=== PATIENT | female | born 1960 | race Caucasian/White ===

== ENCOUNTER 2017-01-16 09:18 | Emergency (ER) | payer OTHER ==
[2017-01-16 09:24] VITALS: BP 140/86
--- NOTE | 2017-01-16 10:52 | PROVIDER DOCUMENTATION ---
HPI-Rash/Wound/ReCheck - General Chief Complaint: Work Related Injury Stated Complaint: WORK RELATED INJURY Time Seen by Provider: 01/16/17 10:42 Source: patient Allergies/Adverse Reactions: Allergies Allergy/AdvReac Type Severity Reaction Status Date / Time acetaminophen [From Lortab] Allergy RASH Verified 01/16/17 09:24 hydrocodone bitartrate * Allergy RASH Verified 01/16/17 09:24 [From Lortab] Penicillins Allergy ANAPHYLAXIS Verified 01/16/17 09:24 Sulfa (Sulfonamide Allergy ANAPHYLAXIS Verified 01/16/17 09:24 Antibiotics) Home Medications: Home Medication List Medication Instructions Recorded Confirmed Last Taken Type Atorvastatin Calcium [Lipitor] 20 mg PO HS 08/26/15 08/26/15 08/25/15 History Cetirizine HCl [Zyrtec] 10 mg PO HS 08/26/15 08/26/15 08/25/15 History Cholecalciferol (Vitamin D3) 1,000 unit PO HS 08/26/15 08/26/15 08/25/15 History [Vitamin D] Lisinopril/Hydrochlorothiazide 1 each PO DAILY 08/26/15 08/26/15 08/26/15 History [Zestoretic 20-12.5 mg Tablet] Meloxicam [Mobic] 15 mg PO DAILY 08/26/15 08/26/15 08/26/15 History Metoprolol Succinate E.r. [Toprol 50 mg PO DAILY 08/26/15 08/26/15 08/26/15 History Xl] Tramadol [Ultram] 50 mg PO Q6H PRN PRN #20 tablet 07/27/16 Unknown Rx Silver Sulfadiazine [Silvadene] 85 gm TP BID #1 cream..g. 01/16/17 Unknown Rx - History of Present Illness-Dermatology Nature of Presenting Problem: 56 yo female presents to ER with c/o burn to medial side of left wrist. She has silvadene on wound. 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 Location: reports: upper extremity (left medial side of FA) Quality: reports: painful Severity: reports: mild Onset/Duration: reports: 1-3 hours ago Timing: reports: still present Context/Associated Symptoms: reports: burn Exposure: reports: other (hot water/steam) Modifying Factors: improves with: other (topical silvadene cream [employer]) Locality of Occurance: Work Similar Symptoms Previously?: No Recently seen or treated by another doctor?: No Review of Systems - Adult - REVIEW OF SYSTEMS - ADULT Constitutional: reports: no symptoms reported Eyes: reports: no symptoms reported Ears, Nose, Mouth & Throat: reports: no symptoms reported Cardiovascular: reports: no symptoms reported Respiratory: reports: no symptoms reported Gastrointestinal: reports: no symptoms reported Genitourinary: reports: no symptoms reported Musculoskeletal: reports: no symptoms reported Integumentary: reports: see HPI Neurological: reports: no symptoms reported Psychiatric: reports: no symptoms reported Endocrine: reports: no symptoms reported Hematologic/Lymphatic: reports: no symptoms reported Allergic/Immunologic: reports: no symptoms reported All Other Systems: Reviewed and Negative Past History - Adult - PAST MEDICAL HISTORY-ADULT Review of Records: reports: Old Records Reviewed, Nursing Assessment Review, Medications Reviewed, Social history reviewed & non-contributory. Major Childhood Illnesses: reports: denies history Cardiovascular: reports: HTN, hyperlipidemia Respiratory: reports: denies history Gastrointestinal: reports: denies history Obstetrical/Gynecological: reports: denies history Genitourinary: reports: denies history Musculoskeletal: reports: arthritis Neurological: reports: denies history Endocrine/Immune: reports: denies history Other Conditions: reports: denies history - PRIOR SURGERIES/PROCEDURES Surgical/Procedure History: reports: hysterectomy, back/neck (neck surgery), other (right achilles tendon repair) - IMMUNIZATION STATUS Childhood Immunizations: See Nurse Assessment Flu Vaccine: See Nurse Assessment - FAMILY HISTORY Family History: reviewed, not pertinent - SOCIAL HISTORY Smoking: denies, non-smoker Substance Use: none/never, denies Alcohol Use Frequency: never Living Situation: family Physical Exam-General - PHYSICAL EXAM-ADULT Initial Vital Signs Reviewed: Yes - CONSTITUTIONAL General Appearance: appears well, alert, no apparent distress - EYES Eyes: PERRL/EOMI, pink conjunctivae - HEAD, EARS, NOSE, MOUTH & THROAT HENMT: normocephalic/atraumatic - RESPIRATORY Respiratory: no respiratory distress - CARDIOVASCULAR Cardiovascular: normal peripheral pulses - MUSCULOSKELETAL Extremity: erythema (to medial side of left wrist/forearm that extends to anterior and posterior side;) - SKIN Integumentary: erythema (1st degree burn), tenderness - NEUROLOGIC Neurologic: grossly normal - PSYCHIATRIC Psych/Mental Status: normal mood/affect, normal thought content, normal thought process, oriented x 3 Progress - PLAN OF CARE/RESULTS Progress/Plan/Lab Results: 1105-Discussed dx/tx/discharge and follow up with PCP on Thursday for re-check or sooner for worsening symptoms. Orders Category Date Time Status Wound Care DIRECTED Care 01/16/17 11:05 Active Diphtheria/Tetanus Adult Med 01/16/17 11:06 Discontinued 0.5 ml IM .ONCE ONE Vital Signs - 24 hr 01/16/17 09:21 Temperature 98 F Pulse Rate 72 Respiratory 18 Rate Blood Pressure 140/86 O2 Sat by Pulse 100 Oximetry Departure - Departure Time of Disposition Order: 11:07 DIAGNOSIS: Injury First degree burn of arm Qualifiers: Encounter type: initial encounter Qualified Code(s): T22.10XA - Burn of first degree of shoulder and upper limb, except wrist and hand, unspecified site, initial encounter Disposition: HOME 01 Certified Medical Emergency: Emergent Condition: Good Additional Instructions: Follow up with primary care doctor. Wash with antibacterial soap and water. Apply silvadene as directed until healed. Cover with clean dressing. ED Follow Up Instructions: You have been treated by a care provider in the Emergency Department. These instructions are being provided to you so you can have an understanding of how to care for yourself upon discharge. Upon discharge from the Emergency Department, you are responsible for making arrangements for follow-up care by a physician of your choice. Take all prescribed medications as directed. Return to the Emergency Department immediately for any new or worsening symptoms. You may call the Physician Referral phone number at [phone] to obtain a list of Physicians who are taking new patients. Prescriptions: Silver Sulfadiazine [Silvadene] 85 gm TP BID #1 cream..g. Referrals: [facility] [Primary Care Provider] - Forms: Work Excuse Attestation - Physician/ KLAUS Attestation Patient care was provided by Advanced Practice Provider:: Yes Advanced Practice Provider:: Cora Steele Advanced Practice Provider documentation review:: The Mid-level provider documentation, treatment plan and medical decision making was reviewed by the physician who agrees with all treatment and medical decision making by the MLP.
[2017-01-16] MEDS ORDERED: DIPHTHERIA/TETANUS ADULT IM ONE (11:06)
== END 2017-01-16 11:28 | disposition home or self-care (01) ==
LOC: P.ED 09:18
DX: T22.112A Burn of first degree of left forearm, initial encounter (principal); X13.1XXA Other contact with steam and other hot vapors, initial encounter; I10 Essential (primary) hypertension; E78.5 Hyperlipidemia, unspecified; M19.90 Unspecified osteoarthritis, unspecified site; Z79.899 Other long term (current) drug therapy; Z79.1 Long term (current) use of non-steroidal anti-inflammatories (NSAID); Z23 Encounter for immunization
CPT/HCPCS: 90714